=== PATIENT | male | born 1940 | race Caucasian/White ===

== ENCOUNTER 2019-09-09 12:05 | Emergency (ER) | payer BC ==
[~2019-09-09] VITALS: Ht 170.2 cm; Wt 77.3 kg
[2019-09-09 12:10] VITALS: Ht 170.2 cm; Wt 77.3 kg
[2019-09-09] MEDS ORDERED: ZIPSOR25 MG (12:11)
[2019-09-09] MEDS ORDERED: LISINOPRIL2.5 MG (12:11)
[2019-09-09] MEDS ORDERED: CRESTOR40 MG (12:12)
[2019-09-09 12:51] LABS: BASOPHILS 0.2 % (0-2); HEMATOCRIT 42.5 % (42.0-54.0); HEMOGLOBIN 14.4 g/dL (13.5-17.5); IMMATURE GRANULOCYTES 0.2 % (0-5); LYMPHOCYTES 26.9 % (15-50); MCH 30.2 pg (26.0-34.0); MCHC 33.9 g/dL (31.0-37.0); MCV 89.1 fL (80.0-100.0); MEAN PLATELET VOLUME 9.5 fL (7.4-10.4); MONOCYTES 7.7 % (2-11); PLATELET COUNT 222 10x3/uL (130-400); RBC 4.77 10x6/uL (4.20-6.10); RDW 13.2 % (11.5-14.5); WBC 6.4 10x3/uL (4.8-10.8)
[2019-09-09 13:00] LABS: CALC OSMOLALITY 280 mosm/kg (275-300); CALCIUM 8.7 mg/dL (8.5-10.1); CARBON DIOXIDE 25.1 mmol/L (21.0-32.0); CHLORIDE - SERUM 103 mmol/L (98-107); CREATININE - SERUM 0.9 mg/dL (0.6-1.3); GLUCOSE 136 mg/dL (74-106); SODIUM 138 mmol/L (136-145); UREA NITROGEN 22 mg/dL (7-18); eGFR NON AFRICAN AMERICAN 87 mL/min (90-120)
[2019-09-09 13:14] LABS: ALBUMIN 3.8 g/dL (3.4-5.0); ALKALINE PHOSPHATASE 75 U/L (46-116); ALT (SGPT) 54 U/L (10-68); BILIRUBIN - TOTAL 0.51 mg/dL (0.2-1.3); CKMB 4.1 U/L (0.0-3.6); CREATINE KINASE 256 UL (21-232); MAGNESIUM - SERUM 1.9 mg/dL (1.8-2.4); PRO BNP 62 pg/mL (0-450); PROTEIN - SERUM 7.5 g/dL (6.4-8.2)
[2019-09-09 13:20] LABS: TROPONIN-I < 0.017 ng/mL (0.000-0.060)
[2019-09-09] MEDS ORDERED: STERAPRED DS 1010 MG PO (13:52)
[2019-09-09 14:27] VITALS: BP 160/78
== END 2019-09-09 14:28 | disposition home or self-care (01) ==
LOC: D.ER 12:05
PROVIDERS: Family Medicine
DX: M79.602 Pain in left arm (principal); R07.9 Chest pain, unspecified; I10 Essential (primary) hypertension; E78.5 Hyperlipidemia, unspecified